=== PATIENT | female | born 1960 ===

== ENCOUNTER 2025-01-06 06:00 | Day surgery (SDC) | payer OTHER ==
[2025-01-03 10:42] VITALS: BP 120/78
[~2025-01-06] VITALS: Ht 157.5 cm; Wt 77.1 kg
[~2025-01-06 06:00] MED LIST: HYDRALAZINE HCL10 MG PO; LOSARTAN-HCTZ1 EAC1 PO; TOPROL XL100 M1 PO
[2025-01-06] MEDS ORDERED: CEFAZOLIN SODIUM 1,000 MG VIAL ONE (06:58)
[2025-01-06] MEDS ORDERED: TYLENOL ARTHRI650 MG PO (07:45)
[2025-01-06] MEDS ORDERED: MIRALAX17 GM PO (07:45)
[2025-01-06] MEDS ORDERED: KETO10TA2 PO (07:45)
[2025-01-06] MEDS ORDERED: TRAMADOL HCL50 MG PO (07:45)
[2025-01-06] MEDS ORDERED: LIDOCAINE HCL 1%/EPINEPHRINE 20ML VIAL IJ ONE (07:58)
[2025-01-06] MEDS ORDERED: BUPIVACAINE HCL/MPF 0.5% 30ML VIAL ONE (07:58)
[2025-01-06] MEDS ORDERED: MORPHINE SULFATE 4 MG/ML VIAL IV ONE (10:00)
[2025-01-06] MEDS ORDERED: ONDANSETRON HCL 2 MG/ML VIAL IV ONE (10:40)
[2025-01-06] MEDS ORDERED: ONDANSETRON HCL 2 MG/ML VIAL ONE (10:42)
== END 2025-01-06 12:10 | disposition home or self-care (01) ==
LOC: CIR.AMB 06:00
PROVIDERS: ATTEND Surgery
DX: K80.10 Calculus of gallbladder with chronic cholecystitis without obstruction (principal); Z91.011 Allergy to milk products